=== PATIENT | male | born 1960 | race Caucasian/White ===

== ENCOUNTER 2016-07-28 21:26 | Emergency (ER) | payer OTHER ==
[~2016-07-28] VITALS: Ht 177.8 cm; Wt 99.8 kg
--- NOTE | ~2016-07-28 | EKG ---
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 : 1960 Requested By: Kristian Cisneros Order Number: [id number] MD: Yayo Santana Measurements Intervals [place] Rate: 81 P: 49 ME: 155 QRS: -1 QRSD: 98 T: 36 QT: 478 QTc: 555 Interpretive Statements Sinus rhythm Low voltage, extremity leads Prolonged QT interval Baseline wander in lead(s) I,II,aVR No previous ECG available for comparison Electronically Signed On 07-31-2016 8:15:17 [employer] by Yayo Santana [email or web address] <ELECTRONICALLY SIGNED> By: Yayo Santana MD, [facility] 07/31/16 0815 35 35 Yayo Santana MD, FACC /EPI
[~2016-07-28 21:26] MED LIST: ALPRAZOLAM ER1 MG PO; CITRATE OF MAG300 ML PO; DEXTROSE 5025 GM/SYR IV PUSH; DULCOLAX5 MG PO; ENOXAPARIN40 MG/0.1 SUBQ; ENSURE PLUS237 ML PO; FLOMAX0.4 MG PO; HUMALOG100 UNIT/1 SUBQ; JANUVIA 50 MG T50 MG PO; LANTUSSOLASTAR SUBQ; NOVOLOG100 UNIT/1 SUBQ; PERCOCET PO; PROTEIN POWDER454 GM PO; PROTONIX40 M1 PO; TRAZODONE 150150 M1 PO; TYLENOL325 MG PO; VANCOCIN 125 M125 M1 MC; VANCOMYCIN1 GM/200 M IV; ZOSYN 3.373.375 GM/1 IV
[2016-07-28] MEDS ORDERED: NAPROSYN500 MG PO (22:42)
== END 2016-07-28 23:40 | disposition home or self-care (01) ==
LOC: ER 21:26
DX: S20.212A Contusion of left front wall of thorax, initial encounter (principal); L89.324 Pressure ulcer of left buttock, stage 4; F17.210 Nicotine dependence, cigarettes, uncomplicated; F10.99 Alcohol use, unspecified with unspecified alcohol-induced disorder; X58.XXXA Exposure to other specified factors, initial encounter; Y93.89 Activity, other specified; Y92.89 Other specified places as the place of occurrence of the external cause; Y99.8 Other external cause status; Z88.8 Allergy status to other drugs, medicaments and biological substances